=== PATIENT | female | born 2000 | race Caucasian/White ===

== ENCOUNTER → 2022-04-24 15:19 | Outpatient (CLI) | payer OTHER, SELFPAY ==
--- NOTE | 2022-04-24 15:26 | DI.RAD.S_ITS ---
PROCEDURE: XR THORACIC SPINE 3V INDICATIONS: BACK PAIN TECHNIQUE: 3 views of the thoracic spine were acquired. COMPARISON: None. FINDINGS: Bones: No fractures or dislocations. No suspicious bony lesions. 12 pairs of ribs are noted, and appear intact where visualized. Soft tissues: No paravertebral stripe thickening. IMPRESSION: Unremarkable exam. Dictated by: Lyly Gamez M.D. on 04/24/2022 at 17:17 Approved by: Lyly Gamez M.D. on 04/24/2022 at 17:17
--- NOTE | 2022-04-24 15:26 | DI.RAD.S_ITS ---
PROCEDURE: XR CERVICAL SPINE 4V OR 5V INDICATIONS: BACK PAIN TECHNIQUE: 5 views of the cervical spine were acquired. COMPARISON: None. FINDINGS: Bones: No fractures or dislocations to the C7-T1 level. No suspicious bony lesions. There is overall slight reversal of cervical curvature. There is normal range of motion between flexion and extension, with preserved normal bony alignment. Soft tissues: Prevertebral soft tissues are normal in thickness. IMPRESSION: Full range of motion between flexion and extension. Dictated by: Lyly Gamez M.D. on 04/24/2022 at 17:17 Approved by: Lyly Gamez M.D. on 04/24/2022 at 17:17
--- NOTE | 2022-04-24 15:26 | DI.RAD.S_ITS ---
PROCEDURE: XR LUMBAR SPINE 2-3V INDICATIONS: BACK PAIN TECHNIQUE: 3 views of the lumbar spine were acquired. COMPARISON: None. FINDINGS: Bones: 5 [id number] vertebrae are present. Trace dextrocurvature.. No vertebral body compression fractures. No suspicious bony lesions. Soft tissues: Overlying bowel gas pattern is normal. No suspicious soft tissue calcifications. IMPRESSION: Trace dextrocurvature; otherwise normal L-spine. Dictated by: Louis Das RR Interpreted: Lyly Gamez MD on 04/24/2022 at 16:11 Transcribed by: MAC on 04/24/2022 at 16:12 Approved by: Lyly Gamez M.D. on 04/24/2022 at 17:28
== END ==
PROVIDERS: Family Provider Family Medicine; PCP Physician Assistant; Referring Provider Chiropractor; Visit Provider Chiropractor
DX: M99.11 Subluxation complex (vertebral) of cervical region (principal); M99.02 Segmental and somatic dysfunction of thoracic region; M99.03 Segmental and somatic dysfunction of lumbar region; M99.04 Segmental and somatic dysfunction of sacral region; M99.05 Segmental and somatic dysfunction of pelvic region; M54.2 Cervicalgia; M54.6 Pain in thoracic spine; M54.50 Low back pain, unspecified
CPT/HCPCS: 72050; 72072; 72100

== ENCOUNTER → 2023-09-18 13:48 | Outpatient (CLI) | payer OTHER, SELFPAY ==
[2023-09-18 16:20] LABS: Urine N gonorrhoeae NOT DETECTED
[2023-09-18 16:28] LABS: Urine Chlamydia NOT DETECTED
== END ==
PROVIDERS: Family Provider Family Medicine; PCP Physician Assistant; Visit Provider Nurse Practitioner Family
DX: R30.0 Dysuria (principal)
CPT/HCPCS: 87086; 87210; 87491; 87591